=== PATIENT | female | born 1965 | race Caucasian/White ===

== ENCOUNTER 2021-01-12 14:43 | Emergency (ER) | payer OTHER, SELFPAY ==
[2021-01-12] MEDS ORDERED: Aspirin Chewable 81 MG TAB ONE (15:37)
[2021-01-12 16:06] LABS: #Eosinphils 0.3 thou/uL (0.0-0.7); #Lymphocytes 2.1 thou/uL (1.20-3.40); #Monocytes 0.4 thou/uL (0.11-0.59); #Neutrophils 3.8 thou/uL (1.40-6.50); %Basophils 0.7 % (0.0-1.0); %Eosinophils 5.1 % (0.0-10.0); %Monocytes 6.6 % (0.0-10.0); %Neutrophils 56.6 % (42.0-75.0); Mean Corpuscular HGB CONC 33.8 g/dL (32.0-36.0); Mean Corpuscular Hemoglobin 30.5 pg (27.0-31.0); Mean Corpuscular Volume 90.4 fL (78.0-98.0); Mean Platelet Volume 6.5 fL (7.4-10.4); Platelet Count 293 thou/uL (130-400); RBC Distribution Width 11.2 % (11.5-14.5); Red Blood Cell (RBC) Count 4.91 mill/uL (4.20-5.40); White Blood Cell (WBC) Count 6.6 thou/uL (4.8-10.8)
[2021-01-12] MEDS ORDERED: Ketorolac Tromethamine 30 MG/ML VIAL ONE (17:47)
--- NOTE | 2021-01-13 07:12 | RAD ---
XR Chest 1 View Portable History: Chest pain Comparison: None. Findings: Lungs are clear. No pneumothorax or effusion. Cardiac silhouette and mediastinal contours a re within normal limits. No acute osseous abnormality. Impression: No acute intrathoracic abnormality.
[2021-01-13] MEDS ORDERED: Piperacillin/Tazobactam 4.5 GM VIAL ONE (17:56)
== END 2021-01-12 19:59 | disposition left against medical advice (07) ==
LOC: ERS 14:43
DX: R07.9 Chest pain, unspecified (principal); E78.00 Pure hypercholesterolemia, unspecified; F17.210 Nicotine dependence, cigarettes, uncomplicated; I10 Essential (primary) hypertension
CPT/HCPCS: 71045; 84484; 85025; 93005; 96374; J1885

== ENCOUNTER 2022-06-27 18:20 | Emergency (ER) | payer SELFPAY ==
[2022-06-27] MEDS ORDERED: Bacitracin 1 PK ONE (18:37)
[2022-06-27] MEDS ORDERED: Lidocaine 1% PF 5 ML VIAL ONE (18:37)
== END 2022-06-27 19:35 | disposition home or self-care (01) ==
LOC: ERS 18:20
DX: S71.112A Laceration without foreign body, left thigh, initial encounter (principal); E78.00 Pure hypercholesterolemia, unspecified; I10 Essential (primary) hypertension; F17.210 Nicotine dependence, cigarettes, uncomplicated; W26.9XXA Contact with unspecified sharp object(s), initial encounter
CPT/HCPCS: 12002